=== PATIENT | female | born 1940 | race Caucasian/White ===

== ENCOUNTER 2018-04-16 12:29 | Emergency (ER) | payer OTHER, MEDICARE ==
[~2018-04-16] VITALS: Ht 160 cm; Wt 93.0 kg
[2018-04-16] MEDS ORDERED: TRAMADOL 50 MG50 MG PO (14:15)
[2018-04-16 15:04] VITALS: BP 188/82
== END 2018-04-16 16:02 | disposition home or self-care (01) ==
LOC: ER 12:29
DX: S30.0XXA Contusion of lower back and pelvis, initial encounter (principal); G89.29 Other chronic pain; M54.5 Low back pain; Z88.0 Allergy status to penicillin; Z88.1 Allergy status to other antibiotic agents; Z88.2 Allergy status to sulfonamides; Z88.8 Allergy status to other drugs, medicaments and biological substances; Z91.040 Latex allergy status; W18.30XA Fall on same level, unspecified, initial encounter; Y93.89 Activity, other specified; Y92.89 Other specified places as the place of occurrence of the external cause; Y99.8 Other external cause status

== ENCOUNTER 2018-05-12 13:51 | Emergency (ER) | payer OTHER, MEDICARE ==
[~2018-05-12] VITALS: Ht 157.5 cm; Wt 89.4 kg
[~2018-05-12 13:51] MED LIST: TRAMADOL 50 MG50 MG PO
[2018-05-12 15:10] LABS: URINE BILIRUBIN NEGATIVE (Negative); URINE BLOOD TRACE (Negative); URINE CLARITY CLEAR; URINE COLOR YELLOW; URINE GLUCOSE-RANDOM* 3+ (Negative); URINE KETONES 1+ (Negative); URINE LEUKOCYTES-REFLEX NEGATIVE (Negative); URINE NITRITE-REFLEX NEGATIVE (Negative); URINE PROTEIN (DIPSTICK) NEGATIVE (Negative); URINE UROBILINOGEN 0.2 E.U./dl (0.2-1.0)
[2018-05-12] MEDS ORDERED: NYAMYC15 GM TOP ×2 (17:08→17:12)
[2018-05-12 17:15] VITALS: BP 154/77
== END 2018-05-12 17:25 | disposition home or self-care (01) ==
LOC: ER 13:51
PROVIDERS: Physician Assistant
DX: M25.552 Pain in left hip (principal); M25.551 Pain in right hip; B37.2 Candidiasis of skin and nail; E11.9 Type 2 diabetes mellitus without complications; Z88.0 Allergy status to penicillin; Z88.1 Allergy status to other antibiotic agents; Z88.2 Allergy status to sulfonamides; Z91.040 Latex allergy status